=== PATIENT | female | born 1960 | race Two or more races ===

== ENCOUNTER 2018-09-03 14:52 | Inpatient (IN) | payer OTHER ==
[~2018-09-03] VITALS: Ht 160 cm; Wt 86.2 kg
[2018-09-13] MEDS ORDERED: SYNTHROID150 MCG PO (12:52)
[2018-09-28] MEDS ORDERED: PERCOCET 5-3251 EACH PO (11:03)
[2018-09-28] MEDS ORDERED: IMODIUM A-D2 M2 PO (11:03)
== END 2018-09-28 17:13 | disposition home or self-care (01) | DRG 330 ==
LOC: SURH 09-14 09:30 → O/R 09-21 09:10 → SURG 09-21 09:10 → SURH 09-26 17:47
PROVIDERS: ADMIT Surgery
PROC: 07TB4ZZ Resection of Mesenteric Lymphatic, Percutaneous Endoscopic Approach (ICD-10-PCS; 2018-09-21)
PROC: 0DJD8ZZ Inspection of Lower Intestinal Tract, Via Natural or Artificial Opening Endoscopic (ICD-10-PCS; 2018-09-21)
PROC: 4A12X4Z Monitoring of Cardiac Electrical Activity, External Approach (ICD-10-PCS; 2018-09-21)
PROC: 4A033R1 Measurement of Arterial Saturation, Peripheral, Percutaneous Approach (ICD-10-PCS; 2018-09-21)
PROC: 0DTE4ZZ Resection of Large Intestine, Percutaneous Endoscopic Approach (ICD-10-PCS; principal; 2018-09-21 11:00)
PROC: B54DZZZ Ultrasonography of Bilateral Lower Extremity Veins (ICD-10-PCS; 2018-09-23)
PROC: B32TYZZ Computerized Tomography (CT Scan) of Left Pulmonary Artery using Other Contrast (ICD-10-PCS; 2018-09-23)
PROC: B32SYZZ Computerized Tomography (CT Scan) of Right Pulmonary Artery using Other Contrast (ICD-10-PCS; 2018-09-23)
PROC: BB24Y0Z Computerized Tomography (CT Scan) of Bilateral Lungs using Other Contrast, Unenhanced and Enhanced (ICD-10-PCS; 2018-09-23)
PROC: B346ZZZ Ultrasonography of Right Internal Carotid Artery (ICD-10-PCS; 2018-09-27)
PROC: B030YZZ Magnetic Resonance Imaging (MRI) of Brain using Other Contrast (ICD-10-PCS; 2018-09-27)
PROC: B030ZZZ Magnetic Resonance Imaging (MRI) of Brain (ICD-10-PCS; 2018-09-27)
DX: D12.0 Benign neoplasm of cecum (principal); Q85.8 Other phakomatoses, not elsewhere classified; J98.11 Atelectasis; J95.89 Other postprocedural complications and disorders of respiratory system, not elsewhere classified; E27.40 Unspecified adrenocortical insufficiency; J91.8 Pleural effusion in other conditions classified elsewhere; D12.2 Benign neoplasm of ascending colon; D12.4 Benign neoplasm of descending colon; D12.5 Benign neoplasm of sigmoid colon; D12.3 Benign neoplasm of transverse colon; R59.0 Localized enlarged lymph nodes; G47.33 Obstructive sleep apnea (adult) (pediatric); I87.2 Venous insufficiency (chronic) (peripheral); E03.8 Other specified hypothyroidism; D64.89 Other specified anemias; I95.81 Postprocedural hypotension
CPT/HCPCS: 70552; 71275

== ENCOUNTER 2018-09-17 08:33 | Day surgery (SDC) | payer OTHER ==
[~2018-09-17 08:33] MED LIST: SYNTHROID150 MCG PO
== END 2018-09-17 13:25 | disposition home or self-care (01) ==
LOC: AMB-ENDOS 08:33
DX: K63.5 Polyp of colon (principal)

== ENCOUNTER 2018-10-06 11:03 | Emergency (ER) | payer OTHER ==
[~2018-10-06] VITALS: Ht 160 cm; Wt 81.2 kg
[~2018-10-06 11:03] MED LIST changes: +IMODIUM A-D2 M2 PO; +PERCOCET 5-3251 EACH PO
== END 2018-10-06 22:16 | disposition home or self-care (01) ==
LOC: ER 11:03
DX: M79.662 Pain in left lower leg (principal); M79.661 Pain in right lower leg

== ENCOUNTER 2018-10-19 13:40 | Emergency (ER) | payer OTHER ==
[~2018-10-19] VITALS: Ht 160 cm; Wt 80.7 kg
[2018-10-19] MEDS ORDERED: ANAPROX (14:12)
[2018-10-19] MEDS ORDERED: XARELTO15 MG (14:12)
== END 2018-10-19 19:10 | disposition home or self-care (01) ==
LOC: ER 13:40
DX: K62.5 Hemorrhage of anus and rectum (principal); I87.2 Venous insufficiency (chronic) (peripheral)

== ENCOUNTER 2025-01-23 08:18 | Outpatient (CLI) | payer OTHER ==
[~2025-01-23 08:18] MED LIST changes: +ANAPROX; +XARELTO15 MG
== END 2025-01-23 08:22 | disposition home or self-care (01) ==
LOC: SONOGRAMA 08:18
PROVIDERS: ATTEND Pathology Anatomic Pathology & Clinical Pathology
DX: E06.3 Autoimmune thyroiditis (principal); D35.1 Benign neoplasm of parathyroid gland